=== PATIENT | female | born 1985 | race Caucasian/White ===

== ENCOUNTER → 2016-04-10 | Day surgery (SDC) | payer OTHER ==
[~2016-04-10] VITALS: Ht 160 cm; Wt 62.6 kg
[~2016-04-10] MED LIST: CETI10TA PO; CYCL10TA PO; IBUP200C PO; KETOROLAC 60 MG/2 ML VIAL (J1885) As Ordered ONE; LIDOCAINE 1% SDV INJ 30 ML VIAL As Ordered ONE; LIDOCAINE 1% SDV INJ 30 ML VIAL XX ONE; LIDOCAINE 2% INJ 100 MG/5 ML SDV (FOR ANES.) As Ordered ONE; LR 1,000 ML IV SCH; MEPERIDINE INJ 25 MG/ML VIAL (J2175) IV PRN; METOCLOPRAMIDE INJ 10MG/2ML VIAL (J2765) IV PRN; MIDAZOLAM INJ 2 MG/2 ML VIAL (J2250) As Ordered ONE; ONDANSETRON 4MG/2ML VIAL (J2405) As Ordered ONE; ONDANSETRON 4MG/2ML VIAL (J2405) IV PRN; PERCOCET 5MG/325MG TAB PO PRN; PRENTAB52 PO; PROPOFOL 200 MG/20 ML VIAL As Ordered ONE; ROBA500T PO; SILVER NITRATE APPLICATOR As Ordered ONE; dexameTHASONE 4 MG/ML 1ML VIAL (J1100) As Ordered ONE; fentaNYL 100 MCG/2 ML INJECTION (J3010) As Ordered ONE; fentaNYL 100 MCG/2 ML INJECTION (J3010) IV PRN
[2016-04-10 09:11] LABS: CONTROL LINE HCG INT CTR LINE PRESENT
[2016-04-10 09:18] LABS: MEAN CORPUSCULAR HEMOGLOBIN 30.6 pg (27.0-33.0); MEAN CORPUSCULAR HGB CONC 33.2 g/dl (32.0-36.5); MEAN CORPUSCULAR VOLUME 92.2 fl (80.0-96.0); RED CELL DISTRIBUTION WIDTH 12.1 % (11.5-14.5); WHITE BLOOD COUNT 3.6 K/mm3 (4.0-10.0)
[2016-04-10 12:45] VITALS: BP 119/77
== END ==
LOC: M SDC 08:27
PROVIDERS: ATTEND Obstetrics & Gynecology
DX: N97.9 Female infertility, unspecified (principal); M79.7 Fibromyalgia; F32.9 Major depressive disorder, single episode, unspecified; G43.909 Migraine, unspecified, not intractable, without status migrainosus; Z79.899 Other long term (current) drug therapy; Z88.8 Allergy status to other drugs, medicaments and biological substances; Z91.02 Food additives allergy status
CPT/HCPCS: 36415; 58555; 84703; 85027; 86850; 86900; 86901; J1100; J1885; J2250; J2405; J3010

== ENCOUNTER 2016-10-10 17:44 | Emergency (ER) | payer OTHER ==
[~2016-10-10] VITALS: Ht 157.5 cm; Wt 65.0 kg
[~2016-10-10 17:44] MED LIST changes: -IBUP200C PO; +IBUP200C10 PO; -KETOROLAC 60 MG/2 ML VIAL (J1885) As Ordered ONE; -LIDOCAINE 1% SDV INJ 30 ML VIAL As Ordered ONE; -LIDOCAINE 1% SDV INJ 30 ML VIAL XX ONE; -LIDOCAINE 2% INJ 100 MG/5 ML SDV (FOR ANES.) As Ordered ONE; -LR 1,000 ML IV SCH; -MEPERIDINE INJ 25 MG/ML VIAL (J2175) IV PRN; -METOCLOPRAMIDE INJ 10MG/2ML VIAL (J2765) IV PRN; -MIDAZOLAM INJ 2 MG/2 ML VIAL (J2250) As Ordered ONE; -ONDANSETRON 4MG/2ML VIAL (J2405) As Ordered ONE; -ONDANSETRON 4MG/2ML VIAL (J2405) IV PRN; -PERCOCET 5MG/325MG TAB PO PRN; -PROPOFOL 200 MG/20 ML VIAL As Ordered ONE; -SILVER NITRATE APPLICATOR As Ordered ONE; -dexameTHASONE 4 MG/ML 1ML VIAL (J1100) As Ordered ONE; -fentaNYL 100 MCG/2 ML INJECTION (J3010) As Ordered ONE; -fentaNYL 100 MCG/2 ML INJECTION (J3010) IV PRN
[2016-10-10] MEDS ORDERED: DILA2TAB6 PO (17:51)
[2016-10-10] MEDS ORDERED: KETOROLAC 30 MG/ML VIAL (J1885) IM ONE (18:15)
[2016-10-10] MEDS ORDERED: HYDROmorphone HCL 1 MG/ML SYRINGE (J1170) IM ONE (18:15)
[2016-10-10] MEDS ORDERED: diazePAM 5 MG TAB PO ONE (18:15)
[2016-10-10] MEDS ORDERED: VALI5TAB PO (19:07)
[2016-10-10] MEDS ORDERED: NORCOTAB PO (19:07)
[2016-10-10 19:11] VITALS: BP 116/75
== END 2016-10-10 19:20 | disposition home or self-care (01) ==
LOC: M ED 17:44
DX: M41.9 Scoliosis, unspecified (principal); M46.1 Sacroiliitis, not elsewhere classified; M54.5 Low back pain; R56.9 Unspecified convulsions; M53.88 Other specified dorsopathies, sacral and sacrococcygeal region; Z79.899 Other long term (current) drug therapy; Z91.89 Other specified personal risk factors, not elsewhere classified; Z88.6 Allergy status to analgesic agent; Z88.8 Allergy status to other drugs, medicaments and biological substances
CPT/HCPCS: 96374; 96375; 99282; J1170; J1885

== ENCOUNTER → 2017-03-11 | Outpatient (CLI) | payer OTHER ==
[2017-03-11 16:25] LABS: CONTROL LINE HCG INT CTR LINE PRESENT; HCG, SERUM QUALITATIVE NEGATIVE (NEGATIVE)
== END ==
LOC: M RAD 15:01
DX: N63.10 Unspecified lump in the right breast, unspecified quadrant (principal); N60.12 Diffuse cystic mastopathy of left breast
CPT/HCPCS: 77066

== ENCOUNTER → 2017-03-11 | Outpatient (CLI) | payer OTHER | LOC: M LAB 15:43 | DX: Z32.00 Encounter for pregnancy test, result unknown (principal) ==

== ENCOUNTER → 2017-03-15 | Outpatient (CLI) | payer OTHER ==
[~2017-03-15] MED LIST changes: -CETI10TA PO; -CYCL10TA PO; -IBUP200C10 PO; +ISOVUE-370 76% 100ML VIAL (Q9967) As Ordered; -PRENTAB52 PO; -ROBA500T PO
== END ==
LOC: M RAD 17:44
DX: R22.0 Localized swelling, mass and lump, head (principal)
CPT/HCPCS: Q9967

== ENCOUNTER → 2017-04-08 | Outpatient (CLI) | payer OTHER ==
[~2017-04-08] MED LIST changes: -ISOVUE-370 76% 100ML VIAL (Q9967) As Ordered; +LIDOCAINE 1% MDV 20ML VIAL As Ordered
== END ==
LOC: M RADPRO 12:42
DX: N63.10 Unspecified lump in the right breast, unspecified quadrant (principal); Z88.8 Allergy status to other drugs, medicaments and biological substances; Z91.041 Radiographic dye allergy status; Z79.899 Other long term (current) drug therapy
CPT/HCPCS: 19083

== ENCOUNTER → 2017-07-16 | Outpatient (CLI) | payer OTHER ==
[~2017-07-16] MED LIST changes: +ISOVUE-370 76% 100ML VIAL (Q9967) As Ordered; -LIDOCAINE 1% MDV 20ML VIAL As Ordered
== END ==
LOC: M RAD 17:30
DX: R22.1 Localized swelling, mass and lump, neck (principal)
CPT/HCPCS: Q9967

== ENCOUNTER → 2017-08-06 | Outpatient (CLI) | payer OTHER | LOC: M RADPRO 11:24 | DX: N97.9 Female infertility, unspecified (principal) | CPT/HCPCS: 58340 ==

== ENCOUNTER → 2017-09-07 | Outpatient (CLI) | payer OTHER | LOC: M RAD 10:02 | DX: N97.9 Female infertility, unspecified (principal) | CPT/HCPCS: 76830 ==

== ENCOUNTER → 2017-09-15 | Outpatient (CLI) | payer OTHER | LOC: M RAD 09:52 | DX: N97.9 Female infertility, unspecified (principal) | CPT/HCPCS: 76830 ==

== ENCOUNTER → 2017-09-16 | Outpatient (CLI) | payer OTHER ==
[2017-09-16 15:22] LABS: ESTRADIOL < 19.0 PG/ML
== END ==
LOC: M LAB 14:10
DX: N97.9 Female infertility, unspecified (principal)

== ENCOUNTER → 2017-09-29 | Outpatient (CLI) | payer OTHER ==
[2017-09-29 10:14] LABS: ESTRADIOL 465.7 PG/ML
== END ==
LOC: M LAB 08:30
DX: N97.9 Female infertility, unspecified (principal)

== ENCOUNTER → 2017-09-29 | Outpatient (CLI) | payer OTHER | LOC: M RAD 08:09 | DX: N97.9 Female infertility, unspecified (principal) | CPT/HCPCS: 76830 ==

== ENCOUNTER → 2017-10-11 | Outpatient (CLI) | payer OTHER ==
[2017-10-11 11:15] LABS: PROGESTERONE 35.9 NG/ML
[2017-10-11 11:15] LABS: ESTRADIOL 720.9 PG/ML
== END ==
LOC: M LAB 10:11
DX: Z31.41 Encounter for fertility testing (principal)
CPT/HCPCS: 84144

== ENCOUNTER 2017-10-18 10:32 | Outpatient (CLI) | payer OTHER | END 2017-10-19 | LOC: M RAD 10:32 | DX: N60.11 Diffuse cystic mastopathy of right breast (principal) | CPT/HCPCS: 76642 ==

== ENCOUNTER → 2017-10-18 | Outpatient (CLI) | payer OTHER ==
[2017-10-18 11:53] LABS: HCG, SERUM QUANTITATIVE 946 MIU/ML
== END ==
LOC: M LAB 10:41
DX: Z32.02 Encounter for pregnancy test, result negative (principal)
CPT/HCPCS: 84702

== ENCOUNTER → 2017-10-20 | Outpatient (CLI) | payer OTHER ==
[2017-10-20 11:46] LABS: PROGESTERONE 36.7 NG/ML
[2017-10-20 11:46] LABS: ESTRADIOL 907.5 PG/ML
[2017-10-20 11:56] LABS: HCG, SERUM QUANTITATIVE 2495 MIU/ML
== END ==
LOC: M LAB 10:43
DX: Z32.01 Encounter for pregnancy test, result positive (principal)
CPT/HCPCS: 84702

== ENCOUNTER → 2017-11-03 | Outpatient (CLI) | payer OTHER ==
[2017-11-03 11:14] LABS: HEMATOCRIT 38.7 % (36.0-47.0); HEMOGLOBIN 13.1 g/dl (12.0-15.5); MEAN CORPUSCULAR HEMOGLOBIN 30.4 pg (27.0-33.0); MEAN CORPUSCULAR HGB CONC 33.9 g/dl (32.0-36.5); MEAN CORPUSCULAR VOLUME 89.8 fl (80.0-96.0); PLATELET COUNT, AUTOMATED 231 10^3/uL (150-450); RED BLOOD COUNT 4.31 10^6/uL (4.00-5.40); RED CELL DISTRIBUTION WIDTH 11.9 % (11.5-14.5); WHITE BLOOD COUNT 8.3 10^3/uL (4.0-10.0)
[2017-11-03 11:18] LABS: APPEARANCE, URINE CLEAR (CLEAR); BACTERIA, URINE AUTO NEGATIVE (NEGATIVE); BILIRUBIN, URINE AUTO NEGATIVE (NEGATIVE); BLOOD, URINE BLOOD NEGATIVE (NEGATIVE); COLOR, URINE COLORLESS (YELLOW); GLUCOSE, URINE (UA) AUTO NEGATIVE (NEGATIVE); KETONE, URINE AUTO NEGATIVE (NEGATIVE); LEUKOCYTE ESTERASE, URINE AUTO NEGATIVE (NEGATIVE); NITRITE, URINE AUTO NEGATIVE (NEGATIVE); PROTEIN, URINE AUTO NEGATIVE (NEGATIVE); RBC, URINE AUTO 0 /HPF (0-3); SPECIFIC GRAVITY URINE AUTO 1.001 (1.002-1.035); SQUAMOUS EPITHELIAL CELL UR AU 0 /HPF (0-6); UROBILINOGEN, URINE AUTO 0.2 mg/dL (0.0-2.0); WBC, URINE AUTO 0 /HPF (0-3)
[2017-11-03 11:44] LABS: ESTRADIOL 742.5 PG/ML
[2017-11-03 11:54] LABS: RUBELLA IgG QUALITATIVE IMMUNE (IMMUNE)
[2017-11-03 11:56] LABS: HEPATITIS B SURFACE ANTIGEN NEGATIVE (NEGATIVE)
[2017-11-03 12:24] LABS: HIV 1&2 SCREEN CENTAUR NEGATIVE (NEGATIVE)
== END ==
LOC: M RAD 09:58
DX: Z36.89 Encounter for other specified antenatal screening (principal); Z3A.01 Less than 8 weeks gestation of pregnancy
CPT/HCPCS: 76801

== ENCOUNTER → 2017-12-03 | Outpatient (CLI) | payer OTHER | LOC: M RAD 15:22 | DX: Z36.89 Encounter for other specified antenatal screening (principal); Z3A.11 11 weeks gestation of pregnancy | CPT/HCPCS: 76801 ==

== ENCOUNTER 2018-03-08 06:02 | Emergency (ER) | payer OTHER ==
[~2018-03-08] VITALS: Ht 165.1 cm; Wt 65.0 kg
[~2018-03-08 06:02] MED LIST changes: +CETI10TA PO; +CYCL10TA PO; +DILA2TAB6 PO; +IBUP200C25 PO; -ISOVUE-370 76% 100ML VIAL (Q9967) As Ordered; +NORCOTAB PO; +PRENTAB52 PO; +ROBA500T PO; +VALI5TAB PO
[2018-03-08] MEDS ORDERED: NS 1,000 ML IV ONE (07:00)
[2018-03-08 07:05] LABS: BASO % 0.4 % (0.0-1.0); EOS # 0.2 10^3/uL (0.0-0.50); EOS % 1.7 % (0.0-3.0); HEMATOCRIT 32.5 % (36.0-47.0); HEMOGLOBIN 11.3 g/dl (12.0-15.5); LYMPH % 20.9 % (24.0-44.0); MEAN CORPUSCULAR HEMOGLOBIN 31.7 pg (27.0-33.0); MEAN CORPUSCULAR HGB CONC 34.8 g/dl (32.0-36.5); MONO # 0.8 10^3/uL (0.0-0.8); MONO % 8.2 % (0.0-5.0); NEUTROPHILS # 6.5 10^3/uL (1.8-7.7); NEUTROPHILS % 66.9 % (36.0-66.0); PLATELET COUNT, AUTOMATED 159 10^3/uL (150-450); RED BLOOD COUNT 3.57 10^6/uL (4.00-5.40); WHITE BLOOD COUNT 9.7 10^3/uL (4.0-10.0)
[2018-03-08 07:10] LABS: INR 0.97
[2018-03-08 07:16] LABS: ALBUMIN 2.6 GM/DL (3.2-5.2); ALT/SGPT 43 U/L (12-78); BILIRUBIN,DIRECT < 0.1 MG/DL (0.0-0.2); BILIRUBIN,TOTAL 0.2 MG/DL (0.2-1.0); BLOOD UREA NITROGEN 5 MG/DL (7-18); CALCIUM LEVEL 8.6 MG/DL (8.5-10.1); CARBON DIOXIDE LEVEL 22 MEQ/L (21-32); CHLORIDE LEVEL 110 MEQ/L (98-107); GLOMERULAR FILTRATION RATE > 60.0 (>60); GLUCOSE, FASTING 104 MG/DL (70-100); POTASSIUM SERUM 3.4 MEQ/L (3.5-5.1); SODIUM LEVEL 141 MEQ/L (136-145); TOTAL PROTEIN 5.6 GM/DL (6.4-8.2)
[2018-03-08 08:32] LABS: AMORPHOUS SEDIMENT SMALL (NEGATIVE); APPEARANCE, URINE CLEAR (CLEAR); BACTERIA, URINE AUTO 1+ (NEGATIVE); BILIRUBIN, URINE AUTO NEGATIVE (NEGATIVE); BLOOD, URINE BLOOD NEGATIVE (NEGATIVE); COLOR, URINE YELLOW (YELLOW); GLUCOSE, URINE (UA) AUTO NEGATIVE (NEGATIVE); KETONE, URINE AUTO NEGATIVE (NEGATIVE); LEUKOCYTE ESTERASE, URINE AUTO NEGATIVE (NEGATIVE); MUCUS, URINE SMALL (NEGATIVE); NITRITE, URINE AUTO NEGATIVE (NEGATIVE); PROTEIN, URINE AUTO NEGATIVE (NEGATIVE); RBC, URINE AUTO 0 /HPF (0-3); SQUAMOUS EPITHELIAL CELL UR AU 3 /HPF (0-6); UROBILINOGEN, URINE AUTO 0.2 mg/dL (0.0-2.0); WBC, URINE AUTO 2 /HPF (0-3)
[2018-03-08] MEDS ORDERED: ACETAMINOPHEN 325 MG TAB PO ONE (08:45)
--- NOTE | 2018-03-08 08:51 | REP ---
OBSTETRIC SONOGRAPHY: Complete study. HISTORY: Trauma. FINDINGS: Scanning through the gravid uterus demonstrates a viable single intrauterine gestation in a breech oblique, head towards the maternal left lie. motion is observed and heart rate is recorded at 141 beats per minute. The placenta shows evidence of a complete placenta previa with placental tissue anteriorly and posteriorly, grade 1. Amniotic fluid is subjectively normal. Closed cervical length measured transabdominally is 4.3 cm. No extrauterine abnormality is observed. No abnormality is noted. Upper and lower extremities are less than optimally seen due to position. The following additional anatomic structures are identified and felt to be sonographically unremarkable: cranium, choroid plexus, cavum, cerebellum posterior fossa, face and profile, lungs, four-chamber heart with left and right ventricular outflow tract views, diaphragm, left-sided stomach, abdominal wall cord insertion, three-vessel umbilical cord, kidneys and bladder, spine. Biometry Chart: BPD 6.3 cm = 25 weeks 2 days HC 23.0 cm = 25 weeks 0 days AC 20.9 cm = 25 weeks 3 days FL 4.4 cm = 24 weeks 3 days HL 4.1 cm = 24 weeks 4 days HC/AC ratio normal 1.1 Cephalic index normal 0.76. Estimated weight 761 grams, 1 pound 10 ounces, 56th percentile for 24 weeks 4 days. IMPRESSION: Viable single intrauterine gestation at 24 weeks 4 days by today's composite criteria. RACHEL by today's sonography June 24, 2018. No traumatic abnormality noted. A complete placenta previa is observed. Breech oblique lie. Less than optimal visualization of the upper and lower extremities due to lie. Electronically Signed by Alvin Morocho MD 03/08/2018 09:18 A
[2018-03-08 09:28] VITALS: BP 114/78
[2018-03-08] MEDS ORDERED: LEVO25TA5 PO (10:16)
[2018-03-08] MEDS ORDERED: PRENTAB9 PO (10:16)
== END 2018-03-08 09:34 | disposition admitted as inpatient to this hospital (09) ==
LOC: EDBD 06:02 → M ED 06:02 → MERGE 06:02 → M ED 09:34
DX: O9A.212 Injury, poisoning and certain other consequences of external causes complicating pregnancy, second trimester (principal); R10.30 Lower abdominal pain, unspecified; S13.4XXA Sprain of ligaments of cervical spine, initial encounter; V47.5XXA Car driver injured in collision with fixed or stationary object in traffic accident, initial encounter; Y92.410 Unspecified street and highway as the place of occurrence of the external cause; Z3A.26 26 weeks gestation of pregnancy; Z88.8 Allergy status to other drugs, medicaments and biological substances; Z91.048 Other nonmedicinal substance allergy status

== ENCOUNTER 2018-03-08 09:36 | Outpatient (CLI) | payer OTHER ==
[~2018-03-08] VITALS: Ht 160 cm; Wt 76.0 kg
[2018-03-08 09:49] VITALS: BP 103/67
[2018-03-08] MEDS ORDERED: PRENTAB9 PO (10:16)
[2018-03-08] MEDS ORDERED: LEVO25TA5 PO (10:16)
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
[2018-03-08 11:21] VITALS: BP 103/64
[2018-03-08 12:42] VITALS: BP 105/62
== END 2018-03-08 13:10 | disposition home or self-care (01) ==
LOC: M LDO 09:36
PROVIDERS: ATTEND Midwife
DX: Z04.3 Encounter for examination and observation following other accident (principal); Z3A.24 24 weeks gestation of pregnancy
CPT/HCPCS: 59025; G0378; G0463

== ENCOUNTER → 2020-03-22 | Outpatient (CLI) | payer SELFPAY ==
[~2020-03-22] MED LIST changes: +COLA100C5 PO; +CYCL-707 PO; -CYCL10TA PO; +HYDR-3715 PO; +IBUP-1114 PO; +LEVO25TA5 PO; -NORCOTAB PO; +OXYC1TAB23 PO; +PRENTAB9 PO
== END ==
LOC: M LABSMTC 13:23
PROVIDERS: ATTEND Pediatrics
DX: Z20.822 Contact with and (suspected) exposure to COVID-19 (principal)

== ENCOUNTER 2020-05-05 04:28 | Emergency (ER) | payer OTHER ==
[~2020-05-05] VITALS: Ht 160 cm; Wt 65.8 kg
[2020-05-05] MEDS ORDERED: CAMILA PO (04:39)
[2020-05-05 05:15] LABS: BASO % 0.6 % (0.0-1.0); EOS # 0.2 10^3/uL (0.0-0.5); EOS % 4.7 % (0.0-3.0); HEMOGLOBIN 12.4 g/dl (12.0-15.5); LYMPH # 2.3 10^3/uL (1.5-5.0); LYMPH % 45.1 % (24.0-44.0); MEAN CORPUSCULAR HEMOGLOBIN 29.2 pg (27.0-33.0); MEAN CORPUSCULAR HGB CONC 32.6 g/dl (32.0-36.5); MEAN CORPUSCULAR VOLUME 89.6 fl (80.0-96.0); MONO # 0.6 10^3/uL (0.0-0.8); NEUTROPHILS % 38.6 % (36.0-66.0); PLATELET COUNT, AUTOMATED 198 10^3/uL (150-450); RED BLOOD COUNT 4.24 10^6/uL (4.00-5.40); WHITE BLOOD COUNT 5.1 10^3/uL (4.0-10.0)
[2020-05-05 05:25] LABS: INR 0.95; PROTHROMBIN TIME 12.9 SECONDS (12.5-14.3)
[2020-05-05 05:56] LABS: ALBUMIN 3.8 GM/DL (3.2-5.2); ALT/SGPT 19 U/L (12-78); BILIRUBIN,DIRECT 0.1 MG/DL (0.0-0.2); BILIRUBIN,TOTAL 0.3 MG/DL (0.2-1.0); BLOOD UREA NITROGEN 17 MG/DL (7-18); CALCIUM LEVEL 8.4 MG/DL (8.5-10.1); CARBON DIOXIDE LEVEL 25 MEQ/L (21-32); CHLORIDE LEVEL 110 MEQ/L (98-107); CK-MB VALUE MASS < 1.0 NG/ML (<3.6); CPK CREATINE PHOSPHOKINASE 70 U/L (26-192); CREATININE FOR GFR 0.82 MG/DL (0.55-1.30); GLOMERULAR FILTRATION RATE > 60.0 (>60); GLUCOSE, FASTING 95 MG/DL (70-100); LIPASE 191 U/L (73-393); MB/CK RELATIVE INDEX 1.43 (< OR =4); POTASSIUM SERUM 3.8 MEQ/L (3.5-5.1); SODIUM LEVEL 141 MEQ/L (136-145); TROPONIN I < 0.02 NG/ML (< 0.10)
--- NOTE | 2020-05-05 06:04 | REPVR ---
PROCEDURE INFORMATION: Exam: XR Chest Exam date and time: 05/05/2020 5:25 AM Age: 34 years old Clinical indication: Other: Chest pain TECHNIQUE: Imaging protocol: XR of the chest Views: 1 view. COMPARISON: No relevant prior studies available. FINDINGS: Lungs: Unremarkable. No consolidation. Pleural spaces: Unremarkable. No pleural effusion. No pneumothorax. Heart/Mediastinum: Unremarkable. No cardiomegaly. Bones/joints: Unremarkable. IMPRESSION: No acute findings. Electronically signed by: Jonathon Vargas On 05/05/2020 06:04:12 AM
[2020-05-05 06:14] LABS: FREE T4 0.95 NG/DL (0.76-1.46)
--- NOTE | 2020-05-05 06:37 | ECGEPIP ---
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
[2020-05-05 07:52] LABS: CK-MB VALUE MASS < 1.0 NG/ML (<3.6); CPK CREATINE PHOSPHOKINASE 62 U/L (26-192); MB/CK RELATIVE INDEX 1.61 (< OR =4); TROPONIN I < 0.02 NG/ML (< 0.10)
[2020-05-05 08:08] VITALS: BP 125/77
== END 2020-05-05 08:20 | disposition home or self-care (01) ==
LOC: M ED 04:28
DX: R00.2 Palpitations (principal); R07.89 Other chest pain; I45.19 Other right bundle-branch block; K21.9 Gastro-esophageal reflux disease without esophagitis; E03.9 Hypothyroidism, unspecified; N80.9 Endometriosis, unspecified; Z79.899 Other long term (current) drug therapy; Z88.5 Allergy status to narcotic agent; Z88.8 Allergy status to other drugs, medicaments and biological substances

== ENCOUNTER 2020-05-31 19:36 | Emergency (ER) | payer OTHER ==
[~2020-05-31] VITALS: Ht 160 cm; Wt 66.0 kg
[~2020-05-31 19:36] MED LIST changes: +CAMILA PO
[2020-05-31] MEDS ORDERED: CAMRTAB2 PO (19:55)
[2020-05-31 20:34] LABS: BASO % 0.5 % (0.0-1.0); EOS # 0.2 10^3/uL (0.0-0.5); EOS % 2.8 % (0.0-3.0); HEMOGLOBIN 12.6 g/dl (12.0-15.5); LYMPH # 2.5 10^3/uL (1.5-5.0); LYMPH % 39.6 % (24.0-44.0); MEAN CORPUSCULAR HEMOGLOBIN 29.7 pg (27.0-33.0); MEAN CORPUSCULAR HGB CONC 33.2 g/dl (32.0-36.5); MEAN CORPUSCULAR VOLUME 89.6 fl (80.0-96.0); MONO # 0.4 10^3/uL (0.0-0.8); MONO % 6.4 % (2.0-8.0); NEUTROPHILS # 3.2 10^3/uL (1.5-8.5); NEUTROPHILS % 50.5 % (36.0-66.0); PLATELET COUNT, AUTOMATED 212 10^3/uL (150-450); RED BLOOD COUNT 4.24 10^6/uL (4.00-5.40); WHITE BLOOD COUNT 6.4 10^3/uL (4.0-10.0)
[2020-05-31 20:43] LABS: INR 0.98; PROTHROMBIN TIME 13.1 SECONDS (12.5-14.3)
[2020-05-31 20:44] LABS: PARTIAL THROMBOPLASTIN TIME 30.1 SECONDS (24.2-38.5)
[2020-05-31 21:07] LABS: HCG, SERUM QUALITATIVE NEGATIVE (NEGATIVE)
[2020-05-31 21:11] LABS: ALBUMIN 3.8 GM/DL (3.2-5.2); ALT/SGPT 20 U/L (12-78); BILIRUBIN,DIRECT 0.1 MG/DL (0.0-0.2); BILIRUBIN,TOTAL 0.3 MG/DL (0.2-1.0); BLOOD UREA NITROGEN 13 MG/DL (7-18); CALCIUM LEVEL 8.6 MG/DL (8.5-10.1); CARBON DIOXIDE LEVEL 27 MEQ/L (21-32); CHLORIDE LEVEL 107 MEQ/L (98-107); CK-MB VALUE MASS < 1.0 NG/ML (<3.6); CPK CREATINE PHOSPHOKINASE 81 U/L (26-192); CREATININE FOR GFR 0.81 MG/DL (0.55-1.30); FREE T4 0.98 NG/DL (0.76-1.46); GLOMERULAR FILTRATION RATE > 60.0 (>60); GLUCOSE, FASTING 88 MG/DL (70-100); MB/CK RELATIVE INDEX 1.23 (< OR =4); PHOSPHORUS LEVEL 3.2 MG/DL (2.5-4.9); POTASSIUM SERUM 3.6 MEQ/L (3.5-5.1); SODIUM LEVEL 140 MEQ/L (136-145); TROPONIN I < 0.02 NG/ML (< 0.10)
--- NOTE | 2020-05-31 21:22 | REPVR ---
PROCEDURE INFORMATION: Exam: US Duplex Right Lower Extremity Veins, Limited Exam date and time: 05/31/2020 9:09 PM Age: 34 years old Clinical indication: Pain; Leg, lower; Left; Additional info: Rle pain R/O dvt TECHNIQUE: Imaging protocol: Real-time Duplex ultrasound of the Right Lower Extremity with 2-D barrera scale, color Doppler flow and spectral waveform analysis with image documentation. Limited exam was focused on the right lower extremity veins. COMPARISON: No relevant prior studies available. FINDINGS: Right deep veins: Unremarkable. The common femoral, femoral and popliteal veins are patent without thrombus. Normal Doppler waveforms. Normal compressibility and/or augmentation response. Right superficial veins: Unremarkable. Saphenofemoral junction is patent without thrombus. Soft tissues: Unremarkable. IMPRESSION: No sonographic evidence of deep vein thrombosis. Electronically signed by: Juan J Álvarez On 05/31/2020 21:22:06 PM
[2020-05-31] MEDS ORDERED: ISOVUE-370 76% 100ML VIAL As Ordered ONE (22:03)
--- NOTE | 2020-05-31 22:42 | REPVR ---
PROCEDURE INFORMATION: Exam: CTA Chest With Contrast Exam date and time: 05/31/2020 10:22 PM Age: 34 years old Clinical indication: Chest pain; Type not specified TECHNIQUE: Imaging protocol: Computed tomographic angiography of the chest with contrast. Axial, coronal and sagittal reformatted images were created and reviewed. 3D rendering (Not supervised by radiologist): MIP and/or 3D reconstructed images were created by the technologist. Radiation optimization: All CT scans at this facility use at least one of these dose optimization techniques: automated exposure control; mA and/or kV adjustment per patient size (includes targeted exams where dose is matched to clinical indication); or iterative reconstruction. Contrast material: ISOVUE 370; Contrast volume: 75 ml; Contrast route: INTRAVENOUS (IV); COMPARISON: CR PORTABLE CHEST X-RAY 05/05/2020 5:00 AM FINDINGS: Pulmonary arteries: Contrast opacification satisfactory. No intraluminal filling defect. Aorta: Unremarkable. No aneurysm or dissection. Lungs: Unremarkable. No consolidation. No mass. Pleural spaces: Unremarkable. No pneumothorax. No pleural effusion. Heart: Unremarkable. No cardiomegaly. No pericardial effusion. Lymph nodes: No pathologically enlarged lymph nodes. Bones/joints: No acute osseous abnormality. T6 butterfly vertebra. Small multilevel Schmorl's nodes. Soft tissues: Unremarkable. IMPRESSION: 1. No CT evidence of pulmonary embolism. 2. Additional findings, as above. Electronically signed by: Juan J Álvarez On 05/31/2020 22:42:28 PM
[2020-05-31 23:00] VITALS: BP 109/68
--- NOTE | 2020-06-01 06:28 | ECGEPIP ---
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
== END 2020-05-31 23:14 | disposition home or self-care (01) ==
LOC: M ED 19:36
DX: R00.2 Palpitations (principal); M79.7 Fibromyalgia; M51.44 Schmorl's nodes, thoracic region; Z79.899 Other long term (current) drug therapy; Z88.5 Allergy status to narcotic agent; Z88.8 Allergy status to other drugs, medicaments and biological substances
CPT/HCPCS: 71275; 80048; 80076; 82550; 82553; 83735; 84100; 84439; 84443; 84484; 84703; 85025; 85610; 85730; 93005; 93041; 93971; 94760; 99285; Q9967

== ENCOUNTER → 2020-07-04 | Outpatient (CLI) | payer OTHER ==
[~2020-07-04] MED LIST changes: +CAMRTAB2 PO; +ISOVUE-370 76% 100ML VIAL As Ordered ONE
--- NOTE | 2020-07-04 13:16 | REP ---
INDICATION: INFERTILITY. COMPARISON: None. TECHNIQUE: The endometrium is cannulated by the attending video control operator. Fluoroscopic guidance is provided during contrast injection and intermittent spot filming is acquired. 0.3 minutes of fluoroscopy time is utilized. FINDINGS: There is opacification of a normal shaped endometrial cavity. No filling defect or synechia is appreciated. The isthmic and ampullary segments of fallopian tubes opacify promptly and symmetrically. Bilateral tubal patency is documented. IMPRESSION: Normal hysterosalpingogram documenting bilateral tubal patency. <Electronically signed by Arsen Morocho > 07/04/20 [id number]
== END ==
LOC: M RADPRO 11:51
PROVIDERS: ATTEND Obstetrics & Gynecology
DX: N97.2 Female infertility of uterine origin (principal)
CPT/HCPCS: 58340; 74740; Q9967

== ENCOUNTER → 2020-07-22 | Outpatient (CLI) | payer OTHER ==
[~2020-07-22] MED LIST changes: -ISOVUE-370 76% 100ML VIAL As Ordered ONE
--- NOTE | 2020-07-22 08:49 | REP ---
INDICATION: INFERTILITY COMPARISON: None TECHNIQUE: Transvaginal pelvic ultrasound examination. FINDINGS: Uterus measures 7.5 x 3.85.2 cm. The endometrial complex measures 3.7 mm thickness with small calcifications again noted. Right ovary measures 2.8 x 2.2 x 2.8 cm with a 11 x 15 mm follicle and 10 subcentimeter follicles measuring between 2.3 and 9.4 mm. A 4.1 x 2.7 x 2.9 mm round hyperechoic structure may represent small resolving hemorrhagic cyst. Left ovary measures 2.5 x 1.3 x 2.5 cm and includes 18 subcentimeter follicles measuring between 1.8 and 5.5 mm. IMPRESSION: Predominantly subcentimeter follicles as noted above. <Electronically signed by Jorge Strickland > 07/22/20 [id number]
== END ==
LOC: M RAD 08:02
PROVIDERS: ATTEND Obstetrics & Gynecology Reproductive Endocrinology
DX: Z31.41 Encounter for fertility testing (principal)

== ENCOUNTER → 2020-08-05 | Outpatient (CLI) | payer OTHER ==
--- NOTE | 2020-08-05 08:58 | REP ---
INDICATION: INFERTILITY COMPARISON: 07/22/2020 TECHNIQUE: Transvaginal ultrasound examination. FINDINGS: Uterus measures 8.1 x 3.4 x 5.8 cm. The endometrial complex measures 9 mm thickness. Small amount of endometrial fluid is identified. Right ovary measures 2.9 x 1.4 x 2.5 cm and includes 7 subcentimeter follicles between 1.8 and 7.3 mm. Left ovary measures 2.8 x 1.1 x 2.4 cm and includes 16 sub cm follicles between 1.3 and 4.1 mm. IMPRESSION: Sub cm follicles as above. <Electronically signed by Jorge Strickland > 08/05/20 [id number]
== END ==
LOC: M RAD 08:15
PROVIDERS: ATTEND Obstetrics & Gynecology Reproductive Endocrinology
DX: Z31.41 Encounter for fertility testing (principal)

== ENCOUNTER → 2020-08-07 | Outpatient (CLI) | payer OTHER | LOC: M LAB 12:32 | PROVIDERS: ATTEND Obstetrics & Gynecology Reproductive Endocrinology | DX: Z31.41 Encounter for fertility testing (principal) ==

== ENCOUNTER → 2020-08-20 | Outpatient (CLI) | payer OTHER ==
[2020-08-20 11:44] LABS: ESTRADIOL 1262.8 PG/ML; PROGESTERONE 24.53 NG/ML
== END ==
LOC: M LAB 09:56
PROVIDERS: ATTEND Obstetrics & Gynecology Reproductive Endocrinology
DX: N97.9 Female infertility, unspecified (principal)

== ENCOUNTER → 2020-08-27 | Outpatient (CLI) | payer OTHER | LOC: M LAB 10:08 | PROVIDERS: ATTEND Obstetrics & Gynecology Reproductive Endocrinology | DX: Z32.02 Encounter for pregnancy test, result negative (principal) ==

== ENCOUNTER → 2020-08-29 | Outpatient (CLI) | payer OTHER ==
[2020-08-29 11:37] LABS: ESTRADIOL 848.6 PG/ML; PROGESTERONE 51.3 NG/ML
== END ==
LOC: M LAB 08:39
PROVIDERS: ATTEND Obstetrics & Gynecology Reproductive Endocrinology
DX: Z32.01 Encounter for pregnancy test, result positive (principal)

== ENCOUNTER → 2020-09-13 | Outpatient (CLI) | payer OTHER ==
--- NOTE | 2020-09-13 13:36 | REP ---
INDICATION: PREG DATING VIABILITY/US 1ST, LAB 2ND. COMPARISON: None. TECHNIQUE: Transabdominal and transvaginal scanning or performed. FINDINGS: Scanning demonstrates a single intrauterine gestation in a free-floating lie. The embryonic pole measures 6 mm. This corresponds with a 6 week 3 day gestational age estimate. heart rate is recorded at 117 beats per minute. A yolk sac is visible adjacent to the embryonic pole. No extra uterine abnormality is observed. IMPRESSION: Single living intrauterine gestation at 6 weeks 3 days by crown-rump length. RACHEL by sonography May 06, 2021. heart rate 117 beats per minute. <Electronically signed by Arsen Morocho > 09/13/20 [id number]
[2020-09-13 14:03] LABS: HEMATOCRIT 41.5 % (36.0-47.0); HEMOGLOBIN 13.7 g/dl (12.0-15.5); MEAN CORPUSCULAR HEMOGLOBIN 29.8 pg (27.0-33.0); MEAN CORPUSCULAR VOLUME 90.4 fl (80.0-96.0); PLATELET COUNT, AUTOMATED 255 10^3/uL (150-450); RED BLOOD COUNT 4.59 10^6/uL (4.00-5.40); WHITE BLOOD COUNT 6.9 10^3/uL (4.0-10.0)
[2020-09-13 15:22] LABS: ESTRADIOL 1012.7 PG/ML; HEPATITIS B SURFACE ANTIGEN NEGATIVE (NEGATIVE); HIV 1&2 SCREEN CENTAUR NEGATIVE (NEGATIVE); PROGESTERONE 40.92 NG/ML
== END ==
LOC: M RAD 12:39
PROVIDERS: ATTEND Obstetrics & Gynecology Reproductive Endocrinology
DX: Z34.90 Encounter for supervision of normal pregnancy, unspecified, unspecified trimester (principal); Z36.87 Encounter for antenatal screening for uncertain dates; Z3A.01 Less than 8 weeks gestation of pregnancy

== ENCOUNTER 2020-09-22 11:16 | Emergency (ER) | payer OTHER ==
[~2020-09-22] VITALS: Ht 160 cm; Wt 67.0 kg
[2020-09-22 11:18] VITALS: BP 120/73
[2020-09-22] MEDS ORDERED: ESTR1TAB PO (11:27)
[2020-09-22] MEDS ORDERED: PROG50IN5 IM (11:28)
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
--- NOTE | 2020-09-22 14:43 | REP ---
INDICATION: fall, cramping. 7 weeks . COMPARISON: None. TECHNIQUE: Transabdominal scanning is performed. FINDINGS: Scanning through the urine filled bladder and uterus demonstrate a single living intrauterine gestation. The crown-rump length of the embryonic pole is 15 mm. This corresponds with a gestational age estimate of 7 weeks 6 days. heart rate is recorded during the examination at 156 beats per minute. No extra uterine abnormality is observed. IMPRESSION: Viable single intrauterine gestation at 7 weeks 6 days by crown-rump length. RACHEL by sonography May 05, 2021. No complication is seen. Retroverted uterus. <Electronically signed by Arsen Morocho > 09/22/20 [id number]
== END 2020-09-22 15:24 | disposition home or self-care (01) ==
LOC: M ED 11:16
DX: O9A.211 Injury, poisoning and certain other consequences of external causes complicating pregnancy, first trimester (principal); W19.XXXA Unspecified fall, initial encounter; Y92.9 Unspecified place or not applicable; Y93.9 Activity, unspecified; Y99.9 Unspecified external cause status; Z3A.01 Less than 8 weeks gestation of pregnancy; Z79.899 Other long term (current) drug therapy; Z88.8 Allergy status to other drugs, medicaments and biological substances; Z88.5 Allergy status to narcotic agent

== ENCOUNTER → 2020-09-23 | Outpatient (CLI) | payer OTHER ==
[~2020-09-23] MED LIST changes: +ESTR1TAB PO; +PROG50IN5 IM
--- NOTE | 2020-09-23 14:18 | REP ---
INDICATION: POSITIVE PREG TEST, EMBRYO TRANSFER TREATMENT. COMPARISON: Comparison sonography is from September 22, 2020.. TECHNIQUE: Transvaginal and transabdominal scanning are included. FINDINGS: The uterus is retroverted. Scanning demonstrates a single intrauterine gestational sac containing a yolk sac and embryonic pole. The embryonic pole measures 9.5 mm in crown-rump length. This would correspond with a 7 week 0 day gestational age estimate. However, there is no evidence of a motion or cardiac motion on transabdominal or transvaginal scanning. Adjacent to the embryo in the intrauterine gestational sac there is a slightly hyperechoic nodule or measuring 8 x 6 x 7 mm. Uncertain etiology. Normal ovaries are observed bilaterally. No free fluid is seen. Right ovary measures 2.7 x 1.4 x 2.1 cm. Left ovarian dimensions are 2.6 x 1.5 x 1.5 cm. IMPRESSION: Findings most consistent with intrauterine demise at 7 weeks 0 days by crown-rump length. There is an 8 mm hyperechoic nodule adjacent to the embryonic pole within the gestational sac. This and the absence of cardiac motion are new findings compared with the study done September 22, 2020. <Electronically signed by Arsen Morocho > 09/23/20 [id number]
== END ==
LOC: M RAD 12:49
PROVIDERS: ATTEND Obstetrics & Gynecology Reproductive Endocrinology
DX: Z36.89 Encounter for other specified antenatal screening (principal); Z3A.01 Less than 8 weeks gestation of pregnancy

== ENCOUNTER 2020-10-11 01:14 | Day surgery (SDC) | payer OTHER ==
[~2020-10-11] VITALS: Ht 160 cm; Wt 65.9 kg
[2020-10-11] MEDS ORDERED: MISO200T56 PO (01:23)
[2020-10-11] MEDS ORDERED: IBUP80TA PO (01:24)
[2020-10-11] MEDS ORDERED: PERC5TAB12 PO (01:24)
[2020-10-11 01:56] LABS: BASO % 0.4 % (0.0-1.0); EOS # 0.2 10^3/uL (0.0-0.5); EOS % 1.6 % (0.0-3.0); HEMATOCRIT 36.1 % (36.0-47.0); HEMOGLOBIN 12.2 g/dl (12.0-15.5); LYMPH # 3.9 10^3/uL (1.5-5.0); LYMPH % 42.6 % (24.0-44.0); MEAN CORPUSCULAR HEMOGLOBIN 29.9 pg (27.0-33.0); MEAN CORPUSCULAR HGB CONC 33.8 g/dl (32.0-36.5); MEAN CORPUSCULAR VOLUME 88.5 fl (80.0-96.0); MONO # 0.7 10^3/uL (0.0-0.8); MONO % 7.8 % (2.0-8.0); NEUTROPHILS # 4.4 10^3/uL (1.5-8.5); NEUTROPHILS % 47.3 % (36.0-66.0); PLATELET COUNT, AUTOMATED 259 10^3/uL (150-450); RED BLOOD COUNT 4.08 10^6/uL (4.00-5.40); WHITE BLOOD COUNT 9.3 10^3/uL (4.0-10.0)
[2020-10-11] MEDS ORDERED: NS 1,000 ML IV ONE (02:05)
[2020-10-11 02:27] LABS: BLOOD UREA NITROGEN 9 MG/DL (7-18); CALCIUM LEVEL 8.9 MG/DL (8.5-10.1); CARBON DIOXIDE LEVEL 24 MEQ/L (21-32); CHLORIDE LEVEL 107 MEQ/L (98-107); CREATININE FOR GFR 0.96 MG/DL (0.55-1.30); GLOMERULAR FILTRATION RATE > 60.0 (>60); GLUCOSE, FASTING 96 MG/DL (70-100); POTASSIUM SERUM 3.1 MEQ/L (3.5-5.1); SODIUM LEVEL 140 MEQ/L (136-145)
[2020-10-11] MEDS ORDERED: OXYTOCIN DRIP IV SCH (03:45)
--- NOTE | 2020-10-11 04:29 | REPVR ---
PROCEDURE INFORMATION: Exam: US First Trimester, Transabdominal Exam date and time: 10/11/2020 2:32 AM Age: 35 years old Clinical indication: Lmp or gestational age (in weeks): 07/11/2020; Other: Heavy vaginal bleeding; ; Patient HX: Patient states at Dr office on 10/10 where they did and ultrasound and saw rpoc, patient given pills to see if she was able to pass the rest of the tissue on her own and scheduled for d&c Wednesday if she hadn't passed all the tissue by then; Additional info: Incomplete ab, vag bleeding, eval for rpoc TECHNIQUE: Imaging protocol: Real-time transabdominal obstetrical ultrasound of the maternal pelvis and a first trimester , less than 14 weeks 0 days, with image documentation. COMPARISON: 1ST TRIMESTER US 09/23/2020 12:58:41 PM FINDINGS: Gestation: There is heterogeneous echogenicity masslike tissue in the lower uterus and cervix which demonstrates some blood flow on color Doppler imaging toward its superior extent and is likely related to retained products of conception. This measures approximately 6.5 x 3.6 x 4.0 cm. The gestational sac, pole, and yolk sac seen on the prior ultrasound are no longer distinguishable. MATERNAL: Uterus: The uterus is anteverted and measures 11.2 x 3.7 x 5.3 cm. Cervix: See Gestation findings. Right adnexa: Visibility of the right ovary was somewhat limited. The best estimate of size is 2.9 x 3.8 x 2.9 cm. Blood flow is seen on color and pulsed Doppler imaging. Left adnexa: There is a 1.9 cm follicle in the left ovary. The left ovary measures 3.7 x 2.5 x 3.0 cm. Normal blood flow is seen on color and pulsed Doppler imaging. Intraperitoneal space: No significant fluid is seen in the cul-de-sac. IMPRESSION: Heterogeneous echogenicity masslike tissue in the lower uterus and cervix, consistent with retained products of conception. The intrauterine gestational sac, pole and yolk sac identified on the prior ultrasound are no longer distinguishable. Electronically signed by: Marlene Qureshi On 10/11/2020 04:28:23 AM
[2020-10-11 04:35] LABS: RSV AMPLIFICATION NEGATIVE (NEGATIVE)
[2020-10-11] MEDS ORDERED: dexameTHASONE 4 MG/ML 1ML VIAL (J1100 PER 1MG) As Ordered ONE (05:43)
[2020-10-11] MEDS ORDERED: MIDAZOLAM INJ 2MG/2ML VIAL (J2250 PER 1MG) As Ordered ONE (05:43)
[2020-10-11] MEDS ORDERED: ONDANSETRON 4MG/2ML VIAL As Ordered ONE (05:43)
[2020-10-11] MEDS ORDERED: LIDOCAINE 2% 100MG/5ML SDV (FOR ANES.) As Ordered ONE (05:43)
[2020-10-11] MEDS ORDERED: propofoL 200 MG/20 ML VIAL As Ordered ONE (05:43)
[2020-10-11] MEDS ORDERED: fentaNYL 100 MCG/2 ML INJECTION (J3010) As Ordered ONE (05:43)
[2020-10-11] MEDS ORDERED: ACETAMINOPHEN 1000MG 100ML IV BTL (OFIRMEV) (J0131 PER 10MG) As Ordered ONE (05:47)
[2020-10-11] MEDS ORDERED: OXYTOCIN INJ 10 UNITS/ML VIAL (J2590) As Ordered ONE (05:50)
[2020-10-11] MEDS ORDERED: LR 1,000 ML IV SCH (06:20)
[2020-10-11] MEDS ORDERED: oxyCODONE 5MG TAB PO PRN (06:20)
[2020-10-11] MEDS ORDERED: ONDANSETRON 4MG/2ML VIAL IV PRN (06:20)
[2020-10-11] MEDS ORDERED: fentaNYL 100 MCG/2 ML INJECTION (J3010) IV PRN (06:20)
[2020-10-11] MEDS ORDERED: KETOROLAC 30 MG/ML 1ML VIAL IV PRN (06:25)
[2020-10-11 08:00] VITALS: BP 111/61
--- NOTE | 2020-10-16 13:17 | RO ---
OPERATIVE NOTE DATE OF OPERATION: 10/11/2020 PREOPERATIVE DIAGNOSIS: Retained products of conception. POSTOPERATIVE DIAGNOSIS: Retained products of conception. OPERATION PROPOSED: Suction curettage. OPERATION PERFORMED: Suction curettage. ANESTHESIA: General. ESTIMATED BLOOD LOSS: Less than 50 mL. ATTENDING SURGEON: Wang De Leon MD PROCEDURE IN DETAIL: After adequate time-out, prepped and draped in the lithotomy position, bladder drained for 150 mL of clear urine, weighted speculum in the vagina, single-toothed tenaculum on the anterior lip of the cervix. The uterus was already dilated to a Hegar 8. Curved suction curette applied. Curettage to the cavity was smooth. The uterus was placed in anatomical position, well-contracted under Pitocin, acetaminophen suppository 1300 mg per rectum. The patient was sent to the recovery in good condition. Tarun Enrique OB
== END 2020-10-11 07:35 | disposition home or self-care (01) ==
LOC: M ED 03:11 → M SDC 03:12 → M ED INP 04:00 → UNDOADMOB 04:00 → M SDC 07:35
PROVIDERS: ATTEND Obstetrics & Gynecology
DX: O02.1 Missed abortion (principal); E03.9 Hypothyroidism, unspecified; F41.9 Anxiety disorder, unspecified; F32.9 Major depressive disorder, single episode, unspecified; Z79.899 Other long term (current) drug therapy; Z88.8 Allergy status to other drugs, medicaments and biological substances; Z88.5 Allergy status to narcotic agent
CPT/HCPCS: 59820; 76801; 80048; 85025; 86850; 86900; 86901; 87631; 88305; 93976; 96374; 99285; J0131; J1100; J2250; J2405; J2590; J3010